=== PATIENT | female | born 1950 | race Caucasian/White ===

== ENCOUNTER 2020-08-02 09:53 | Emergency (ER) | payer MEDICARE, SELFPAY ==
[~2020-08-02] VITALS: Ht 167.6 cm; Wt 80.7 kg
[~2020-08-02 09:53] MED LIST: ALBU0.0952 IH; ALBUTEROL PO; BUDE1AER PO; LISI10TA11 PO; [UNRECOGNIZED DRUG - CODE] PO
[2020-08-02 10:02] VITALS: BP 164/91
--- NOTE | 2020-08-02 10:10 | NUR ---
PT BIB SON C/O ELEVATED BLOOD PRESSURE 170/80S DUE TO NOT SLEEP WELL LAST NIGHT. PT IS COVID POSITIVE DIAGNOSED 2 WEEKS AGO. PER SON, PT IS RECOVERING FROM COVID. DENIES N/V/D, FEVER, COUGH, MUSCLE ACHES, FATIGUE. PMH: ASTHMA, HTN
[2020-08-02 11:38] VITALS: BP 162/83
--- NOTE | 2020-08-02 11:38 | NUR ---
Patient discharged with v/s stable. Written and verbal after care instructions given and explained. Patient verbalized understanding. Ambulatory with steady gait. All questions addressed prior to discharge. Advised to follow up with PMD.
== END 2020-08-02 11:38 | disposition home or self-care (01) ==
LOC: MED 09:53
DX: U07.1 COVID-19 (principal); I10 Essential (primary) hypertension; G47.00 Insomnia, unspecified; F43.9 Reaction to severe stress, unspecified; J45.909 Unspecified asthma, uncomplicated; Z88.1 Allergy status to other antibiotic agents; Z79.899 Other long term (current) drug therapy
CPT/HCPCS: 99281

== ENCOUNTER 2022-08-09 08:00 | Emergency (ER) | payer MEDICARE ==
[~2022-08-09] VITALS: Ht 165.1 cm; Wt 80.7 kg
[~2022-08-09 08:00] MED LIST changes: -LISI10TA11 PO; +LISI10TA30 PO
[2022-08-09 08:12] VITALS: BP 156/80
--- NOTE | 2022-08-09 08:14 | NUR ---
PT AMBULATED TO BED 11
--- NOTE | 2022-08-09 08:20 | NUR ---
72F presents to ED with c/o of low back/LLQ ABD pain and rash x4days. Pt reports being seen in urgent care 3 days ago and Rx Flagyl, pain and rash has worsened since. Pt reports a constant, aching like, 8/10 pain from left lower back that radiates to LLQ of the ABD. Pt denies UTI symptoms, fevers, chills, or meds for pain. Rash noted from left lower back spreading to left lower ABD upon assessment.
[2022-08-09] MEDS ORDERED: ACYC-279 PO (08:32)
[2022-08-09] MEDS ORDERED: GABA100C PO (08:33)
[2022-08-09] MEDS ORDERED: ACET-2619 PO (08:34)
--- NOTE | 2022-08-09 08:45 | NUR ---
Patient discharged with v/s stable. Written and verbal after care instructions ABOUT SHINGLES given and explained. Patient alert, oriented and verbalized understanding of instructions. Ambulatory with steady gait. All questions addressed prior to discharge. ID band removed. Patient advised to follow up with PMD. Rx of ACYCLOVIR, GABAPENTIN, TYLENOL given. Patient educated on indication of medication including possible reaction and side effects. Opportunity to ask questions provided and answered.
== END 2022-08-09 08:45 | disposition home or self-care (01) ==
LOC: MED 08:00
DX: B02.9 Zoster without complications (principal); J45.909 Unspecified asthma, uncomplicated; I10 Essential (primary) hypertension; E11.9 Type 2 diabetes mellitus without complications; Z79.4 Long term (current) use of insulin; Z79.899 Other long term (current) drug therapy
CPT/HCPCS: 99283

== ENCOUNTER 2023-06-22 14:03 | Emergency (ER) | payer MEDICARE ==
[~2023-06-22] VITALS: Ht 162.6 cm; Wt 68.9 kg
[~2023-06-22 14:03] MED LIST changes: +ACET-2619 PO; +ACYC-279 PO; +GABA100C PO
[2023-06-22 14:29] VITALS: BP 146/70; PULSE 110; RESP 20; TEMP 99.6; O2SAT 95
[2023-06-22] MEDS ORDERED: NACL 0.9% 1,000 ML IV ONE (14:45)
[2023-06-22] MEDS ORDERED: KETOROLAC 30 MG/ML VIAL IVP ONE (14:45)
[2023-06-22 15:23] LABS: EOSINOPHILS # (AUTO) 0.4 K/uL (0-0.4); MONOCYTES # (AUTO) 1.1 K/uL (0.8-1.0)
[2023-06-22 15:29] LABS: BASOPHILS # (AUTO) 0.1 K/uL (0.00-0.22); BASOPHILS % (AUTO) 0.7 % (0.0-2.0); EOSINOPHILS % (AUTO) 2.1 % (0.0-4.0); HEMATOCRIT 40.5 % (36-48); HEMOGLOBIN 13.4 g/dL (12.0-16.0); LYMPHOCYTES # (AUTO) 2.2 K/uL (2.5-16.5); LYMPHOCYTES % (AUTO) 12.4 % (20.5-51.1); MEAN CORPUSCULAR HEMOGLOBIN 30 pg (27-31); MEAN CORPUSCULAR HGB CONC 33 g/dL (33-37); MEAN CORPUSCULAR VOLUME 89.9 fL (80-94); MONOCYTES % (AUTO) 6.1 % (1.7-9.3); NEUTROPHILS # (AUTO) 14.1 K/uL (1.8-7.7); NEUTROPHILS % (AUTO) 78.7 % (42.2-75.2); PLATELET COUNT (AUTO) 290 K/uL (140-450); RED CELL DISTRIBUTION WIDTH 13.1 % (11.6-13.7)
[2023-06-22 15:34] LABS: ANION GAP 14.3 (8-16); CALCIUM 8.5 mg/dL (8.5-10.1); CARBON DIOXIDE 25.8 mmol/L (21-32); CHLORIDE 98 mmol/L (98-107); CREATININE 0.8 mg/dL (0.6-1.3); GLUCOSE 122 mg/dL (74-106); POTASSIUM 4.1 mmol/L (3.5-5.1); SODIUM SERUM 134 mmol/L (136-145); UREA NITROGEN, BLOOD 17 mg/dL (7-18)
[2023-06-22 15:37] LABS: APPEARANCE,URINE CLEAR (CLEAR); BILIRUBIN,URINE NEGATIVE (NEGATIVE); BLOOD, URINE TRACE-I (NEGATIVE); COLOR,URINE YELLOW (YELLOW); LEUKOCYTE ESTERASE ,URINE NEGATIVE (NEGATIVE); NITRITE, URINE NEGATIVE (NEGATIVE); PROTEIN,URINE NEGATIVE (NEGATIVE); UGLUCOSE NEGATIVE (NEGATIVE); UROBILINOGEN,URINE 0.2 EU/dL (0.2 - 1)
[2023-06-22 15:49] LABS: BACTERIA,URINE FEW /HPF (None Seen); RBC,URINE 0-5 /HPF (0-5); SQUAMOUS EPITHELIAL CELL,UR 0-3 (FEW) /LPF (0-3 (FEW)); WBC,URINE 0-5 /HPF (0-5)
[2023-06-22] MEDS ORDERED: KETOROLAC 30 MG/ML VIAL ONE (16:16)
[2023-06-22 17:09] LABS: FLU A ANTIGEN negative (NEGATIVE); FLU B ANTIGEN NEGATIVE (NEGATIVE)
[2023-06-22 17:26] VITALS: BP 135/72; PULSE 97; RESP 20; TEMP 99.6; O2SAT 95
== END 2023-06-22 17:25 | disposition home or self-care (01) ==
LOC: MED 14:03
DX: R51.9 Headache, unspecified (principal); Z20.822 Contact with and (suspected) exposure to COVID-19; J45.909 Unspecified asthma, uncomplicated; I10 Essential (primary) hypertension; E11.9 Type 2 diabetes mellitus without complications; Z88.8 Allergy status to other drugs, medicaments and biological substances; Z79.4 Long term (current) use of insulin; Z79.899 Other long term (current) drug therapy
CPT/HCPCS: 36415; 80048; 81001; 85025; 87426; 87804; 96361; 96374; 99283; J1885; J7030